=== PATIENT | female | born 1985 ===

== ENCOUNTER 2023-03-01 21:05 | Emergency (ER) | payer SELFPAY ==
[2023-03-01] MEDS ORDERED: KEFLEX500 MG PO (23:03)
[2023-03-01 23:31] VITALS: BP 133/85
== END 2023-03-02 00:03 | disposition home or self-care (01) | DRG 909 ==
LOC: ED 21:05
PROC: 0JCK0ZZ Extirpation of Matter from Left Hand Subcutaneous Tissue and Fascia, Open Approach (ICD-10-PCS; principal; 2023-03-01)
DX: S61.442A Puncture wound with foreign body of left hand, initial encounter (principal); W34.010A Accidental discharge of airgun, initial encounter; Y93.89 Activity, other specified